=== PATIENT | male | born 1980 | race Caucasian/White ===

== ENCOUNTER 2019-05-10 20:48 | Emergency (ER) | payer BC ==
[2019-05-10 22:16] LABS: ABSOLUTE BASOPHILS # (AUTO) 0.1 10^3/uL (0.0-0.2); ABSOLUTE EOSINOPHILS # (AUTO) 0.2 10^3/uL (0.0-0.6); ABSOLUTE LYMPHOCYTES (AUTO) 1.7 10^3/uL (0.5-4.7); ABSOLUTE MONOCYTES (AUTO) 0.6 10^3/uL (0.1-1.4); ABSOLUTE NEUT (AUTO) 5.7 10^3/uL (1.7-8.2); BASOPHILS % (AUTO) 0.8 % (0-2); EOSINOPHILS % (AUTO) 1.9 % (0-6); HEMATOCRIT 45.5 % (37.9-51.0); HEMOGLOBIN 16.2 g/dL (13.5-17.0); LYMPHOCYTES % (AUTO) 20.3 % (13-45); MEAN CORPUSCULAR HEMOGLOBIN 30.4 pg (27.0-33.4); MEAN CORPUSCULAR HGB CONC 35.5 g/dL (32.0-36.0); MEAN CORPUSCULAR VOLUME 86 fl (80-97); MONOCYTES % (AUTO) 7.6 % (3-13); PLATELET COUNT 260 10^3/uL (150-450); RED BLOOD COUNT 5.31 10^6/uL (4.35-5.55); RED CELL DISTRIBUTION WIDTH 13.2 % (11.5-14.0); SEGMENTED NEUTROPHILS % (AUTO) 69.4 % (42-78); TOTAL CELLS COUNTED % (AUTO) 100 %; WHITE BLOOD COUNT 8.2 10^3/uL (4.0-10.5)
[2019-05-10 22:42] LABS: ALBUMIN 4.9 g/dL (3.5-5.0); ALKALINE PHOSPHATASE 42 U/L (38-126); ANION GAP 11 (5-19); ASPARTATE AMINO TRANSFERASE 29 U/L (17-59); BILIRUBIN,DIRECT 0.2 mg/dL (0.0-0.4); BILIRUBIN,TOTAL 0.8 mg/dL (0.2-1.3); BLOOD UREA NITROGEN 14 mg/dL (7-20); CALCIUM 9.6 mg/dL (8.4-10.2); CARBON DIOXIDE 27 mmol/L (22-30); CHLORIDE 100 mmol/L (98-107); CREATINE KINASE 73 U/L (55-170); GLUCOSE 92 mg/dL (75-110); POTASSIUM 4.2 mmol/L (3.6-5.0); TOTAL PROTEIN 7.9 g/dL (6.3-8.2)
[2019-05-10 22:52] LABS: CREATINE KINASE MB 0.47 ng/mL (<4.55)
[2019-05-10 22:58] LABS: TROPONIN I < 0.012 ng/mL
--- NOTE | 2019-05-10 23:06 | ER Document Report ---
ED Medical Screen (RME) - General Chief Complaint: Irregular Pulse Stated Complaint: RAPID HEART RATE Time Seen by Provider: 05/10/19 22:54 Primary Care Provider: AURORA BAEZA MD [Primary Care Provider] - Follow up as needed Notes: Patient is a 38-year-old male who presents to the emergency department with a chief complaint of a rapid heart rate. Patient states that on Thursday he ended up having a rapid heart rate, but it went away. He states that on that day he took a fat burner. Then tonight, he ended up having the same incident. States that he drank a Coke prior to having this incident. He denies any chest pain. Patient has a history of hypertension, but stopped taking his medication. Exam: S1, S2. I have greeted and performed a rapid initial assessment of this patient. A comprehensive ED assessment and evaluation of the patient, analysis of test results and completion of medical decision making process will be conducted by an additional ED providers. TRAVEL OUTSIDE OF THE [place] IN LAST 30 DAYS: No - Related Data Allergies/Adverse Reactions: No Known Allergies Allergy (Unverified 05/10/19 22:55) Past Medical History - Social History Frequency of alcohol use: Heavy Drug Abuse: None Physical Exam - Vital signs Vitals: Temp Pulse Resp BP Pulse Ox 97.9 F 64 22 H 166/90 H 100 05/10/19 21:05 05/10/19 21:05 05/10/19 21:05 05/10/19 21:05 05/10/19 21:05 Course - Vital Signs Vital signs: Temp Pulse Resp BP Pulse Ox 97.9 F 64 22 H 166/90 H 100 05/10/19 21:05 05/10/19 21:05 05/10/19 21:05 05/10/19 21:05 05/10/19 21:05 - Laboratory Result Diagrams: 05/10/19 21:50 05/10/19 21:50 Doctor's Discharge - Discharge Referrals: AURORA BAEZA MD [Primary Care Provider] - Follow up as needed
--- NOTE | 2019-05-11 02:28 | RADIOLOGY REPORT (SQ) ---
CLINICAL HISTORY: tachycardia COMPARISON: None. TECHNIQUE: XR CHEST 1 VIEW 05/11/2019 12:51 AM COMMERCIAL SPECIALIST FINDINGS: Cardiac silhouette is normal in size. Lungs are clear without consolidation, atelectasis, mass or edema. There is no pleural effusion. There is no pneumothorax. There are no acute osseous findings. IMPRESSION: Clear lungs.
--- NOTE | 2019-05-11 02:55 | ER Document Report ---
Entered by JEANNIE GRANDE SCRIBE 05/11/19 0048 Acting as scribe for:ARMANDO SMITH MD ED General - General Chief Complaint: Irregular Pulse Stated Complaint: RAPID HEART RATE Time Seen by Provider: 05/10/19 22:54 Primary Care Provider: AURORA BAEZA MD [COMMUNITY BASED STAFF] - Follow up as needed Information source: Patient Notes: 38-year-old male presents to the emergency department with a rapid heat beat that occurred 5 days ago and a couple hours ago. Patient states that his first episode of increased heart rate was 5 days ago after taking a "fat burner with a lot of caffeine". Patient stated that he did not take the supplement after this episode. Patient stated that this morning he went for a run, went to work and at night he had a coke and noticed his heart rate was racing again with associated shortness of breath and lightheadedness. Patient stated that he checked his heart rate and "it felt fast". Patient stated that he laid down and held a cold compress but the symptoms came back but "not as strong as the first time". Patient states that he feels "jittery" at the moment. Patient reports diarrhea 5 days ago with a "stomach bug" that he was "getting over". Patient denies chest pain, leg pain, nausea and vomiting. Patient reports that he has slightly elevated blood pressure. Baseline around 145/85. He was prescribed medications two years ago and stopped taking the medications a year ago. TRAVEL OUTSIDE OF THE [place] IN LAST 30 DAYS: No - Related Data Allergies/Adverse Reactions: No Known Allergies Allergy (Unverified 05/10/19 22:55) Past Medical History - General Information source: Patient - Social History Smoking Status: Never Smoker Cigarette use (# per day): No Chew tobacco use (# tins/day): No Frequency of alcohol use: Heavy Drug Abuse: None Family History: Reviewed & Not Pertinent Patient has suicidal ideation: No Patient has homicidal ideation: No - Past Medical History Cardiac Medical History: Reports: Hx Hypertension Past Surgical History: Reports: Hx Oral Surgery - wisdom teeth Review of Systems - Review of Systems Constitutional: No symptoms reported EENT: No symptoms reported Cardiovascular: See HPI, Heart racing, Lightheaded. denies: Chest pain Respiratory: See HPI, Short of breath Gastrointestinal: See HPI, Diarrhea. denies: Nausea, Vomiting Genitourinary: No symptoms reported Male Genitourinary: No symptoms reported Musculoskeletal: No symptoms reported Skin: No symptoms reported Hematologic/Lymphatic: No symptoms reported Neurological/Psychological: No symptoms reported -: Yes All other systems reviewed and negative Physical Exam - Vital signs Vitals: Temp Pulse Resp BP Pulse Ox 97.9 F 64 22 H 166/90 H 100 05/10/19 21:05 05/10/19 21:05 05/10/19 21:05 05/10/19 21:05 05/10/19 21:05 - Notes Notes: Physical Exam: General: Alert, appears well. HEENT: Normocephalic. Atraumatic. PERRL. Extraocular movements intact. Oropharynx clear. Neck: Supple. Non-tender. Respiratory: No respiratory distress. Clear and equal breath sounds bilaterally. Cardiovascular: Regular rate and rhythm. 2/6 systolic murmur. Abdominal: Normal Inspection. Non-tender. No distension. Normal Bowel Sounds. Back: No gross abnormalities. Extremities: Moves all four extremities. Upper extremities: Normal inspection. Normal ROM. Lower extremities: Normal inspection. No edema. Normal ROM. Neurological: Normal cognition. AAOx4. Normal speech. Psychological: Normal affect. Normal Mood. Skin: Warm. Dry. Normal color. Course - Re-evaluation Re-evalutation: 05/11/19 0 patient resting comfortably. No signs of tachycardia since he has been in the department. Cardiovascular christensen is been stable. 2:50 - Vital Signs Vital signs: Temp Pulse Resp BP Pulse Ox 97.9 F 64 14 146/81 H 98 05/10/19 21:05 05/10/19 21:05 05/11/19 00:01 05/11/19 00:01 05/11/19 00:01 - Laboratory Result Diagrams: 05/10/19 21:50 05/10/19 21:50 - Diagnostic Test Radiology reviewed: Image reviewed, Reports reviewed Radiology results interpreted by me: 05/11/19 02:50 Chest x-ray no acute acute process no cardiopulmonary acute disease. - EKG Interpretation by Me Additional EKG results interpreted by me: 05/11/19 02:51 Twelve-lead EKG done 05/10/20272053 normal sinus rhythm rate of 66 left anterior fascicular block. Consider left ventricular hypertrophy. Discharge - Discharge Clinical Impression: Rapid palpitations Condition: Stable Disposition: HOME, SELF-CARE Additional Instructions: Palpitations (Irregular/Rapid Heartrate) Irregular or rapid heartbeat is called "palpitation." To diagnose the cause of palpitation, we have to "catch it in the act" with an EKG. Sinus Tachycardia: This is a rapid (but NORMAL) rhythm that can be due to fever, pain, anxiety, lack of sleep, over-exertion, or drugs. Cold medications, caffeine, and diet pills are particularly likely to cause tachycardia. Usually, all that's required is rest, reassurance, and avoiding caffeine, alcohol, mino blossom, and unnecessary medicines. Paroxysmal Atrial Tachycardia (PAT): This abnormally rapid heartbeat is caused by a "short circuit" in the electrical system of the heart. It is not dangerous, unless other heart disease is present. These attacks of PAT may occur occasionally for years. Medication is available for treatment. Paroxysmal Atrial Fibrillation or Atrial Flutter: This is irregular electrical activity in the upper heart chamber. These abnormal rhythms often occur with valve disease or in hearts damaged by hardening of the arteries. These rhythms usually require further testing, for example a cardiac echo. Premature Beats: Extra beats occur more commonly after caffeine, nicotine, alcohol, cold pills, diet pills. Emotional stress or fatigue also provoke them. Extra beats are only dangerous when heart disease is present. They usually need no treatment. If they're frequent, or if evidence of heart disease develops, medication can be given to suppress them. If we were unable to "catch" the palpitations on EKG, you should try to get an EKG immediately if the symptoms begin again. Contact the physician at once if you develop persistent lightheadedness, shortness of breath, chest pain, or swelling of the ankles. Recommend discontinuance of taking fat burner caffeine tablets this may have been the cause of your palpitations that occurred this weekend. Recommend you follow-up with your primary care physician regarding your events of this weekend as well as your blood pressure elevation of 155/93 while in the department. So recommend you follow-up with cardiology with your family history of coronary artery disease so that you can have a baseline stress test done. Forms: Elevated Blood Pressure Referrals: AURORA BAEZA MD [COMMUNITY BASED STAFF] - Follow up as needed I personally performed the services described in the documentation, reviewed and edited the documentation which was dictated to the scribe in my presence, and it accurately records my words and actions.
[2019-05-11 03:31] VITALS: BP 138/80
--- NOTE | 2019-05-11 22:31 | EKG REPORT ---
SEVERITY:- ABNORMAL ECG - SINUS RHYTHM LEFT ANTERIOR FASCICULAR BLOCK CONSIDER LEFT VENTRICULAR HYPERTROPHY : Confirmed by: Andrzej Lainez 11-May-2019 22:29:59
== END 2019-05-11 03:41 | disposition home or self-care (01) ==
LOC: ER 20:48
DX: R00.2 Palpitations (principal); R19.7 Diarrhea, unspecified; R03.0 Elevated blood-pressure reading, without diagnosis of hypertension
CPT/HCPCS: 36415; 71045; 80053; 82550; 82553; 83735; 84443; 84484; 85025; 93005; 93010; 99285